=== PATIENT | female | born 1965 | race Caucasian/White ===

== ENCOUNTER → 2017-04-06 | Outpatient (CLI) | payer OTHER ==
[~2017-04-06] MED LIST: COLE1TAB2 PO; HYDR25TA6 PO; LOSA50TA6 PO; MELA3TAB2 PO; OMEG1CAP34 PO; RED600CA2 PO; SERT50TA5 PO; THYR60TA PO; ZOLP-413 PO
[2017-04-06 15:00] LABS: HEMATOCRIT 47.1 % (34.6-47.8); HEMOGLOBIN 15.7 g/dL (11.7-16.4); WHITE BLOOD COUNT 9.1 x10^3/uL (3.4-10)
[2017-04-06 15:13] LABS: BLOOD UREA NITROGEN 15 mg/dL (7-18); TOTAL IRON BINDING CAPACITY 300 mcg/dL (250-450)
[2017-04-06 15:39] LABS: ASPARTATE AMINO TRANSFERASE 37 U/L (15-37); FERRITIN 206.7 ng/mL (8-252); TRANSFERRIN 228 mg/dL (200-360)
== END | disposition home or self-care (01) ==
LOC: STAR 13:32
PROVIDERS: ATTEND Surgery
DX: Z01.818 Encounter for other preprocedural examination (principal); R79.89 Other specified abnormal findings of blood chemistry
CPT/HCPCS: 36415; 80053; 80061; 82306; 82607; 82728; 82746; 83540; 83550; 83970; 84134; 84425; 84466; 85025

== ENCOUNTER 2017-04-13 08:07 | Inpatient (IN) | payer OTHER ==
[~2017-04-13] VITALS: Ht 160 cm; Wt 90.2 kg
[2017-04-13] MEDS: LEVOTHYROXINE 88 MCG TABLET PO SCH (06:00)
[~2017-04-13 08:07] MED LIST changes: +BUPIVACAINE/PF 0.5% ONE; +CHOL100012 PO; +DICY10CA3 PO; +LEVO88TA4 PO; +LIOT5TAB3 PO; +LOSA100T6 PO; +POTASSIUM CL PO; +Vitamin PO; +vitamin c PO
[2017-04-13 09:04] VITALS: BP 154/93
[2017-04-13] MEDS ORDERED: MULT-658 PO (09:09)
[2017-04-13] MEDS ORDERED: LACTATED RINGERS 1,000 ML IV SCH (09:10)
[2017-04-13] MEDS ORDERED: CEFAZOLIN 1,000 MG ONE (10:39)
[2017-04-13] MEDS ORDERED: FENTANYL PF 250 MCG/5ML ONE (10:39)
[2017-04-13] MEDS ORDERED: ONDANSETRON 2MG/ML, 2ML ONE (10:39)
[2017-04-13] MEDS ORDERED: HYDROmorphone 1 MG/ML, 1ML ONE (10:39)
[2017-04-13] MEDS ORDERED: ROCURONIUM 10 MG/ML,10ML ONE (10:39)
[2017-04-13] MEDS ORDERED: DEXAMETHASONE 4 MG/ML, 1ML ONE (10:39)
[2017-04-13] MEDS ORDERED: MIDAZOLAM 1 MG/ML, 2ML ONE (10:39)
[2017-04-13] MEDS ORDERED: PROPOFOL 10 MG/ML, 20ML ONE (10:39)
[2017-04-13] MEDS ORDERED: OXYcodone 5 MG/5 ML ORAL.SOL UDC PO PRN (12:00)
[2017-04-13] MEDS ORDERED: MEPERIDINE/PF 25MG/0.5ML IVPush PRN (12:00)
[2017-04-13] MEDS ORDERED: METOPROLOL 1 MG/ML, 5ML IV PRN (12:00)
[2017-04-13] MEDS ORDERED: PROMETHAZINE 25 MG/ML, 1ML IV PRN (12:00)
[2017-04-13] MEDS ORDERED: hydrALAzine 20 MG/ML, 1ML IV PRN (12:00)
[2017-04-13] MEDS ORDERED: LORazepam 2 MG/ML, 1ML IVPush PRN (12:00)
[2017-04-13] MEDS ORDERED: FENTANYL PF 100 MCG/2ML IV PRN (12:00)
[2017-04-13] MEDS ORDERED: HYDROmorphone 1 MG/ML, 1ML IV PRN (12:00)
[2017-04-13] MEDS ORDERED: ALBUTEROL SULFATE 2.5 MG/3 ML NPPB PRN (12:00)
[2017-04-13] MEDS ORDERED: SUGAMMADEX 200 MG/2 ML IVPush ONE (12:24)
[2017-04-13 13:45] VITALS: BP 140/89
[2017-04-13] MEDS ORDERED: ONDANSETRON 2MG/ML, 2ML IV PRN (15:30)
[2017-04-13] MEDS ORDERED: DIPHENHYDRAMINE 25 MG CAPSULE PO PRN (15:30)
[2017-04-13] MEDS ORDERED: LACTATED RINGERS 500 ML IVBOLUS PRN (15:30)
[2017-04-13] MEDS: POTASSIUM CHLORIDE 20 MEQ in LACTATED RINGERS 1,000 ML IV SCH (16:18)
[2017-04-13] MEDS: ENOXAPARIN 30 MG/0.3 ML SQ SCH (16:19)
[2017-04-13 19:22] VITALS: BP 127/82
[2017-04-13] MEDS: LORazepam 2 MG/ML, 1ML IV PRN ×2 (20:18→22:45)
[2017-04-13] MEDS: DIPHENHYDRAMINE 50 MG/ML, 1ML IV PRN ×2 (20:18→22:45)
[2017-04-13] MEDS: LIOTHYRONINE 5 MCG TABLET PO SCH (20:18)
[2017-04-13 23:55] VITALS: BP 127/78
[2017-04-14] MEDS: POTASSIUM CHLORIDE 20 MEQ in LACTATED RINGERS 1,000 ML IV SCH ×3 (00:12→10:19)
[2017-04-14 04:00] VITALS: BP 115/72
[2017-04-14] MEDS: ENOXAPARIN 30 MG/0.3 ML SQ SCH ×2 (04:45→17:06)
[2017-04-14] MEDS: LEVOTHYROXINE 88 MCG TABLET PO SCH (04:53)
[2017-04-14 06:06] LABS: HEMATOCRIT 41.6 % (34.6-47.8); HEMOGLOBIN 13.7 g/dL (11.7-16.4); WHITE BLOOD COUNT 9.9 x10^3/uL (3.4-10)
[2017-04-14 06:12] LABS: BLOOD UREA NITROGEN 5 mg/dL (7-18)
[2017-04-14 06:52] VITALS: BP 115/73
[2017-04-14] MEDS: LIOTHYRONINE 5 MCG TABLET PO SCH (08:52)
[2017-04-14] MEDS ORDERED: LOSARTAN 50MG TABLET PO SCH (09:00)
[2017-04-14] MEDS: HYDROcodone/APAP 7.5-325MG/15ML UDC PO PRN ×2 (13:29→17:54)
[2017-04-14 13:35] VITALS: BP 106/57
[2017-04-17] MEDS ORDERED: LEVOTHYROXINE 88 MCG TABLET PO SCH (06:00)
== END 2017-04-14 19:00 | disposition home or self-care (01) | DRG 621 ==
LOC: ORIP 08:07 → INTOOBSV 08:07 → EDSTATUS 10:30 → 4NOR 14:18 → OBSVTOIN 04-14 10:10
PROVIDERS: ADMIT Surgery; ATTEND Surgery
PROC: 0BQT4ZZ Repair Diaphragm, Percutaneous Endoscopic Approach (ICD-10-PCS; 2017-04-13)
PROC: 0DB64Z3 Excision of Stomach, Percutaneous Endoscopic Approach, Vertical (ICD-10-PCS; principal; 2017-04-13 10:30)
DX: E66.01 Morbid (severe) obesity due to excess calories (principal); K76.0 Fatty (change of) liver, not elsewhere classified; E03.9 Hypothyroidism, unspecified; F32.9 Major depressive disorder, single episode, unspecified; G47.00 Insomnia, unspecified; G47.30 Sleep apnea, unspecified; I10 Essential (primary) hypertension; K44.9 Diaphragmatic hernia without obstruction or gangrene; Z68.39 Body mass index [BMI] 39.0-39.9, adult; Z88.6 Allergy status to analgesic agent; Z88.5 Allergy status to narcotic agent; Z90.710 Acquired absence of both cervix and uterus; Z90.49 Acquired absence of other specified parts of digestive tract; Z90.89 Acquired absence of other organs; Z83.3 Family history of diabetes mellitus; Z82.61 Family history of arthritis; Z82.49 Family history of ischemic heart disease and other diseases of the circulatory system; Z83.42 Family history of familial hypercholesterolemia; Z83.49 Family history of other endocrine, nutritional and metabolic diseases
CPT/HCPCS: 36415; 80048; 82040; 85025; 88307; G0378; J0690; J1100; J1170; J1650; J2250; J2270; J2405; J2704; J3010; J3480; J3490; J1200; J2060; J7120